=== PATIENT | female | born 1985 | race Caucasian/White ===

== ENCOUNTER 2020-03-25 12:07 | Outpatient (CLI) | payer OTHER | END 2020-03-25 12:08 | disposition home or self-care (01) | LOC: COV 12:07 | PROVIDERS: ATTEND Family Medicine | DX: R05 Cough (principal); R06.02 Shortness of breath; Z20.828 Contact with and (suspected) exposure to other viral communicable diseases ==

== ENCOUNTER 2021-04-01 11:16 | Emergency (ER) | payer MEDICAID, OTHER ==
--- NOTE | 2021-04-01 11:59 | ED Physician Documentation ---
PD HPI HEADACHE - Stated complaint Stated Complaint: HARRISON N/V - Chief complaint Chief Complaint: Neuro - History obtained from History obtained from: Patient - History of Present Illness Timing - onset: Enter time (0500), Yesterday Timing - onset during: Rest Timing - duration: Days (1) Timing - details: Abrupt onset, Still present Location: Global Quality: Aching Associated symptoms: Nausea, Vomiting, Vision changes. No: Fever, Stiff neck, W eakness, Numbness, Syncope, Seizure Improved by: Rest, Dark room, Quiet, Meds Worsened by: Light, Noise, Moving Contributing factors: No: Anticoagulated Similar symptoms before: Has not had sx before Recently seen: Not recently seen - Additional information Additional information: 35 y/o female awoke with headache nausea and vomiting. Appears uncomfortable . Review of Systems Constitutional: denies: Fever Eyes: denies: Decreased vision Ears: denies: Ear pain Nose: denies: Congestion Throat: denies: Sore throat Cardiac: denies: Chest pain / pressure, Palpitations Respiratory: denies: Dyspnea, Cough GI: reports: Nausea, Vomiting. denies: Abdominal Pain : denies: Dysuria, Frequency Skin: denies: Rash Musculoskeletal: denies: Neck pain, Back pain, Extremity pain Neurologic: reports: Headache. denies: Generalized weakness, Focal weakness, Numbness, Head injury, LOC PD PAST MEDICAL HISTORY - Allergies Allergies/Adverse Reactions: Allergies Allergy/AdvReac Type Severity Reaction Status Date / Time Penicillins AdvReac Rash Verified 04/01/21 11:27 PD ED PE NORMAL - Vitals Vital signs reviewed: Yes (tachy and hypertensive ) - General General: Alert and oriented X 3, Well developed/nourished, Other (appears to be in pain with tow feeder tone, flat affect and tears) - HEENT HEENT: Atraumatic, PERRL, EOMI - Neck Neck: Supple, no meningeal sign, No bony TTP - Cardiac Cardiac: RRR, No murmur - Respiratory Respiratory: No respiratory distress, Clear bilaterally - Abdomen Abdomen: Soft, Non tender - Back Back: No CVA TTP, No spinal TTP - Derm Derm: Normal color, Warm and dry, No rash - Extremities Extremities: No deformity, No edema - Neuro Neuro: Alert and oriented X 3, deburr operator 2-12 intact, No motor deficit, No sensory deficit, Normal speech Eye Opening: Spontaneous Motor: Obeys Commands Verbal: Oriented GCS Score: 15 - Psych Psych: Normal mood Results - Vitals Vitals: Vital Signs - 24 hr 04/01/21 04/01/21 11:25 13:26 Temperature 36.9 C 37.4 C Heart Rate 117 H 96 Respiratory 20 16 Rate Blood Pressure 131/83 H 101/69 O2 Saturation 99 97 Oxygen O2 Source Room air - Labs Labs: Laboratory Tests 04/01/21 11:39 Serum HCG, Qual NEGATIVE PD MEDICAL DECISION MAKING - ED course Complexity details: re-evaluated patient, considered differential, d/w patient ED course: 35-year-old female awoke with headache nausea and vomiting this is persisted she appears very uncomfortable she is treated in the emerge department with a migraine cocktail consisting of a liter of saline 10 mg of dexamethasone 10 mg of Compazine 25 mg of Benadryl and 30 mg of Toradol intravenously. She felt much improved at the time of treatment was discharged home with a diagnosis of migraine headache. Departure - Departure Disposition: 01 Home, Self Care Clinical Impression: Migraine Qualifiers: Migraine type: without aura Status migrainosus presence: without status migrainosus Intractability: not intractable Qualified Code(s): G43.009 - Migraine without aura, not intractable, without status migrainosus Condition: Stable Instructions: ED Headache Migraine Follow-Up: [facility] [Provider Group] Discharge Date/Time: 04/01/21 14:02
[2021-04-01] MEDS: SODIUM CHLORIDE 0.9% 1,000 ML IV STA (12:08)
[2021-04-01 12:28] LABS: HCG,QUALITATIVE BLOOD NEGATIVE
[2021-04-01] MEDS: diphenhydrAMINE INJ 50 MG/ML VIAL IVP STA (12:47)
[2021-04-01] MEDS: PROCHLORPERAZINE 10 MG/2 ML VIAL IVP STA (12:47)
[2021-04-01] MEDS: KETOROLAC 30 MG/ML VIAL IVP STA (12:50)
[2021-04-01] MEDS: DEXAMETHASONE 10 MG/ML VIAL IVP STA (12:52)
[2021-04-01 13:57] VITALS: BP 101/69
== END 2021-04-01 14:02 | disposition home or self-care (01) ==
LOC: ED 11:16
DX: G43.009 Migraine without aura, not intractable, without status migrainosus (principal)
CPT/HCPCS: 84703; 96361; 96374; 96375; 99284; 99285; J1200

== ENCOUNTER 2022-03-26 21:20 | Emergency (ER) | payer MEDICAID ==
[2022-03-26 22:15] LABS: RED CELL DISTRIBUTION WIDTH 12.2 % (12.0-15.0)
[2022-03-26 22:20] LABS: BASOPHILS % (AUTO) 0.4 %; EOSINOPHILS % (AUTO) 4.5 %; HCT - HEMATOCRIT 39.9 % (37.0-47.0); HGB - HEMOGLOBIN 12.9 g/dL (12.0-16.0); LYMPHOCYTES % (AUTO) 22.6 %; MEAN CORPUSCULAR HEMOGLOBIN 28.3 pg (27.0-31.0); MEAN CORPUSCULAR HGB CONC 32.3 g/dL (32.0-36.0); MEAN CORPUSCULAR VOLUME 87.5 fL (81.0-99.0); MEAN PLATELET VOLUME 9.5 fL (7.9-10.8); MONOCYTES % (AUTO) 16.2 %; NEUTROPHILS % (AUTO) 56.1 %; PLT - PLATELET COUNT 273 10^3/uL (130-450); RED BLOOD COUNT 4.56 10^6/uL (4.20-5.40); WHITE BLOOD COUNT 4.7 x10^3/uL (4.8-10.8)
[2022-03-26 22:26] LABS: ABNORMAL LYMPHS % (MANUAL) 0 %; BAND NEUTROPHILS % (MANUAL) 0 %
[2022-03-26 22:28] LABS: ALBUMIN 3.9 g/dL (3.2-5.5); ALBUMIN/GLOBULIN RATIO 1.1 (1.0-2.2); BILIRUBIN,TOTAL 0.3 mg/dL (0.2-1.0); CREATININE 0.6 mg/dL (0.4-1.0); POTASSIUM 3.6 mmol/L (3.5-5.0); TOTAL PROTEIN 7.5 g/dL (6.7-8.2)
[2022-03-26 22:28] LABS: BILIRUBIN,URINE NEGATIVE (NEGATIVE); GLUCOSE, URINE (UA) NEGATIVE (NEGATIVE); KETONES,URINE (UA) NEGATIVE (NEGATIVE); LEUKOCYTE ESTERASE, URINE TRACE (NEGATIVE); NITRITE,URINE NEGATIVE (NEGATIVE); OCCULT BLOOD,URINE TRACE-INTA (NEGATIVE); PROTEIN,URINE NEGATIVE (NEGATIVE); UROBILINOGEN,URINE 0.2 (NORMAL) E.U./dL (NORMAL)
[2022-03-26 22:48] LABS: CLARITY,URINE HAZY (CLEAR); HCG UR QUAL NEGATIVE; RBC,URINE 0-5 /HPF (0-5)
[2022-03-26 22:49] LABS: BACTERIA,URINE Few /HPF (None Seen); SQUAMOUS EPITHELIAL CELL,UR FEW Squamous (<= Few)
[2022-03-26 22:53] LABS: DIFFERENTIAL COMMENT MANUAL DIFFERENTIAL; EOSINOPHILS # (MANUAL) 0.4 10^3/uL (0-0.7); LYMPHOCYTES % (MANUAL) 14 %; MONOCYTES # (MANUAL) 0.4 10^3/uL (0.0-1.0); NEUTROPHILS # (MANUAL) 2.9 10^3/uL (1.5-6.6); PLATELET ESTIMATE, MANUAL NORMAL (130-450,000) (NORMAL); PLATELET MORPHOLOGY NORMAL APPEARANCE (NORMAL); RBC MORPHOLOGY (MULTIPLE) NORMAL APPEARANCE (NORMAL); REACTIVE LYMPHS % (MANUAL) 7 %
[2022-03-26] MEDS ORDERED: MORPHINE 2 MG/ML CARPUJECT IVP STA (23:58)
[2022-03-26] MEDS ORDERED: SODIUM CHLORIDE 0.9% 1,000 ML IV STA (23:58)
[2022-03-26] MEDS ORDERED: cefTRIAXone 1 GM VIAL IVP STA (23:59)
[2022-03-26] MEDS ORDERED: ONDANSETRON 4 MG/2 ML VIAL IVP STA (23:59)
[2022-03-27] MEDS ORDERED: KETOROLAC 15 MG/ML VIAL IVP STA (00:20)
[2022-03-27] MEDS ORDERED: KETOROLAC 15 MG/ML VIAL ONE (00:22)
--- NOTE | 2022-03-27 01:12 | CT Report ---
PROCEDURE: ABDOMEN/PELVIS WO INDICATIONS: sharp severe L flank pain TECHNIQUE: Noncontrast 5 mm thick sections acquired from the diaphragms to the symphysis. 5 mm coronal and sagi ttal reformats were then performed. For radiation dose reduction, the following was used: automated exposure control, adjustment of mA and/or kV according to patient size. COMPARISON: None. FINDINGS: Image quality: Excellent. Lung bases: Unremarkable. Heart: Heart is normal in size. ABDOMEN: Liver:Noncontrast evaluation of the liver demonstrates no discrete mass lesion. Gallbladder: Within normal limits without calcified gallstones. Biliary ducts: No biliary ductal dilatation. Pancreas:The pancreas appears thickened but evaluation is limited in the absence of intravenous cont rast. No definite peripancreatic fat stranding or fluid collections. Spleen: Normal in size. Adrenal Glands: No adrenal nodules. Kidneys and Ureters: No hydronephrosis or renal stones.Ureters are nondistended. Stomach and Bowel: Stomach, small bowel loops, and colon are normal in caliber and wall thickness. T he appendix is normal in appearance. There is colonic diverticulosis without acute diverticulitis. Peritoneum: No abnormal intraperitoneal fluid. No free air. Ventral Wall: No hernia. Abdominal Nodes: No retroperitoneal or mesenteric adenopathy by size criteria. Vessels: Aorta and inferior vena cava are normal in size. PELVIS: Pelvic Organs: Unremarkable. Bladder: Unremarkable. Pelvic Nodes: No enlarged lymph nodes. Miscellaneous: No inguinal hernias are seen. Bones: Visualized osseous structures demonstrate no suspicious focal lesions. IMPRESSION: 1. No evidence of nephrolithiasis or obstructive uropathy. 2. Colonic diverticulosis without acute diverticulitis. 3. Thickened appearance of the pancreas but evaluation is limited in the absence of intravenous contr ast. The findings are nonspecific and may reflect a normal variant but the differential includes auto immune pancreatitis. If clinical concern persists, consider further evaluation with contrast-enhanced images. Reviewed by: Ta Ramirez MD on 03/27/2022 1:10 AM [facility] Approved by: Ta Ramirez MD on 03/27/2022 1:10 AM [facility] Station ID: [id number]
--- NOTE | 2022-03-27 03:25 | ED Physician Documentation ---
History of Present Illness - Stated complaint Stated Complaint: BACK/ABD PX - Chief complaint Chief Complaint: Abd Pain - History obtained from History obtained from: Patient - Additonal information Additional information: 36-year-old female presented with left flank pain sudden onset 1-1/2 hours prior to arrival associated with nausea. Nonradiating, sharp, severe, associated with feverishness and dysuria.No history of kidney stones. Review of Systems Ten Systems: 10 systems reviewed and negative Constitutional: reports: Other (feverish/chills) GI: reports: Nausea. denies: Abdominal Pain, Vomiting, Diarrhea : reports: Dysuria Musculoskeletal: reports: Other (flank pain) PD PAST MEDICAL HISTORY - Present Medications Home Medications: Ambulatory Orders Medication Instructions Recorded Confirmed Levothyroxine [Synthroid] 125 mcg PO QDAC 03/26/22 03/26/22 Methylphenidate [Ritalin] 5 mg PO DAILY PM 03/26/22 03/26/22 Ciprofloxacin [Cipro] 500 mg PO Q12H 10 Days #40 tablet 03/27/22 Ketorolac [Toradol] 10 mg PO Q6H PRN #30 tablet 03/27/22 - Allergies Allergies/Adverse Reactions: Allergies Allergy/AdvReac Type Severity Reaction Status Date / Time Penicillins AdvReac Rash Verified 03/26/22 21:26 PD ED PE NORMAL - Vitals Vital signs reviewed: Yes - General General: Alert and oriented X 3, Other (moderate distess on arrival) - HEENT HEENT: Atraumatic, PERRL, EOMI - Neck Neck: Supple, no meningeal sign - Cardiac Cardiac: RRR - Respiratory Respiratory: No respiratory distress, Clear bilaterally - Abdomen Abdomen: Non tender, Non distended - Back Back: Other (L flank ttp) - Derm Derm: Normal color, Warm and dry - Extremities Extremities: No deformity - Neuro Neuro: Alert and oriented X 3, No motor deficit, No sensory deficit - Psych Psych: Normal mood, Normal affect Results - Vitals Vitals: Vital Signs - 24 hr 03/26/22 03/27/22 21:24 00:21 Temperature 36.6 C Heart Rate 92 87 Respiratory 20 22 Rate Blood Pressure 124/77 122/69 O2 Saturation 98 100 Oxygen O2 Source Room air - Labs Labs: Laboratory Tests 03/26/22 03/26/22 03/26/22 22:00 22:10 22:10 WBC 4.7 L RBC 4.56 Hgb 12.9 Hct 39.9 MCV 87.5 MCH 28.3 MCHC 32.3 RDW 12.2 Plt Count 273 MPV 9.5 Neut # (Auto) Not Reportable Lymph # (Auto) Not Reportable Carlton # (Auto) Not Reportable Eos # (Auto) Not Reportable Baso # (Auto) Not Reportable Absolute Nucleated RBC Not Reportable Total Counted 100 Band Neuts % (Manual) 0 Reactive Lymphs % (Man) 7 Abnorm Lymph % (Manual) 0 Nucleated RBC % Not Reportable Neutrophils # (Manual) 2.9 Lymphocytes # (Manual) 1.0 L Monocytes # (Manual) 0.4 Eosinophils # (Manual) 0.4 Basophils # (Manual) 0.0 Differential Comment MANUAL DIFFERENTIAL Platelet Estimate NORMAL (130-450,000) Platelet Morphology NORMAL APPEARANCE RBC Morph Micro Appear NORMAL APPEARANCE Sodium 135 Potassium 3.6 Chloride 104 Carbon Dioxide 25 Anion Gap 6.0 BUN 13 Creatinine 0.6 Estimated GFR (MDRD) 114 Glucose 99 Calcium 9.0 Total Bilirubin 0.3 AST 25 ALT 21 Alkaline Phosphatase 77 Total Protein 7.5 Albumin 3.9 Globulin 3.6 Albumin/Globulin Ratio 1.1 Lipase 32 Urine Color LT. YELLOW Urine Clarity HAZY Urine pH 7.0 Ur Specific [place] <=1.005 Urine Protein NEGATIVE Urine Glucose (UA) NEGATIVE Urine Ketones NEGATIVE Urine Occult Blood TRACE-INTA Urine Nitrite NEGATIVE Urine Bilirubin NEGATIVE Urine Urobilinogen 0.2 (NORMAL) Ur Leukocyte Esterase TRACE H Urine RBC 0-5 Urine WBC 4-5 Ur Squamous Epith Cells FEW Squamous Urine Bacteria Few Ur Microscopic Review INDICATED Urine Culture Comments INDICATED Urine HCG, Qual NEGATIVE PD MEDICAL DECISION MAKING - ED course ED course: 36 y F p/w undifferentiated flank pain - uti vs stone vs muscular origin Lab work noncontributory with the exception of some small blood in the urine as well as indications that there is infection. We will send for urine culture and will obtain CT to evaluate for kidney stones. No stones on CT. Discussed incidental findings with patient. She is feeling better status post Toradol IV and morphine. Plan to follow-up outpatient. Return precautions given. Antibiotics to and Toradol pain medication sent to pharmacy. Departure - Departure Disposition: 01 Home, Self Care Clinical Impression: UTI (urinary tract infection), Flank pain Condition: Stable Instructions: UTI Prescriptions: Ciprofloxacin [Cipro] 500 mg PO Q12H 10 Days #40 tablet Ketorolac [Toradol] 10 mg PO Q6H PRN #30 tablet PRN Reason: Pain Comments: You were seen in the emergency department for UTI. Please take your antibiotics as prescribed (sent to [facility] in [place] electronically in addition to pain medication). Return to the emergency department if you have any new or worsening symptoms or other concerns. Follow-up with your primary doctor.
[2022-03-27 03:36] VITALS: BP 105/76
== END 2022-03-27 03:40 | disposition home or self-care (01) ==
LOC: ED 21:20
DX: N39.0 Urinary tract infection, site not specified (principal); R31.9 Hematuria, unspecified; R10.9 Unspecified abdominal pain
CPT/HCPCS: 36415; 80053; 81001; 81003; 81025; 83690; 85025; 87077; 87086; 96361; 96374; 96375; 99282